=== PATIENT | male | born 1955 | race Caucasian/White ===

== ENCOUNTER 2022-10-13 16:51 | Emergency (ER) | payer MEDICARE ==
[2022-10-13] MEDS ORDERED: CYCLOBENZAPRINE10 MG PO (17:00)
== END 2022-10-13 18:43 | disposition home or self-care (01) ==
LOC: ED 16:51
DX: S16.1XXA Strain of muscle, fascia and tendon at neck level, initial encounter (principal); I16.0 Hypertensive urgency; V43.52XA Car driver injured in collision with other type car in traffic accident, initial encounter; Y93.89 Activity, other specified; Y92.89 Other specified places as the place of occurrence of the external cause; Y99.8 Other external cause status